=== PATIENT | male | born 1945 | race Caucasian/White ===

== ENCOUNTER 2016-12-23 00:54 | Day surgery (SDC) | payer MEDICARE ==
[2016-12-23] VITALS (10 sets, daily range): BP systolic 127–149; BP diastolic 69–98; PULSE 60–75; RESP 10–16; O2SAT 96–97
[~2016-12-23] VITALS: Ht 182.9 cm; Wt 102.6 kg
[~2016-12-23 00:54] MED LIST: ASPI-973 PO; FLUT9.9S NS; HYDR12.5 PO; IBUP400T22 PO; METO25TA99 PO; MULT-666 PO; OMEP20CA11 PO; PANT40TA3 PO; SIMV20TA4 PO; VENL75TA3 PO; VIT1TABL83 PO
[2016-12-23] MEDS ORDERED: 0.9% Sodium Chloride 1,000 ML IV ONE (07:03)
[2016-12-23] MEDS ORDERED: 0.9% Sodium Chloride 1,000 ML ONE ×2 (09:12→11:08)
[2016-12-23] MEDS ORDERED: Heparin 1,000 Unit/mL 10 mL Inj ONE ×3 (09:12→11:08)
[2016-12-23] MEDS ORDERED: Heparin 1,000 Units/500 mL NS Premix IV ONE (09:12)
[2016-12-23 09:18] LABS: BASOPHILS % (AUTO) 1.2 % (0-3); EOSINOPHILS % (AUTO) 6.1 % (0-5); MONOCYTES % (AUTO) 7.4 % (4-12); Mean Corpuscular Volume 85.6 fL (81-100); NEUTROPHILS % (AUTO) 65.8 % (40-74); Platelet Count 147 bil/L (150-400)
[2016-12-23] MEDS ORDERED: METO-272 PO (09:34)
[2016-12-23] MEDS ORDERED: VENL225T3 PO (09:34)
[2016-12-23] MEDS ORDERED: fentaNYL-PF 50 mCg/mL 2 mL Inj ONE ×2 (10:31→11:28)
[2016-12-23] MEDS ORDERED: Nitroglycerin 50,000 mcg/250 mL D5W Premix IV ONE (11:08)
[2016-12-23] MEDS ORDERED: 0.9% Sodium Chloride 250 ML IV PRN (12:49)
[2016-12-23] MEDS ORDERED: 0.9% Sodium Chloride 1,000 ML IV PRN (12:49)
[2016-12-23] MEDS ORDERED: HYDROcodone-APAP 5-325 mg Tablet PO PRN (12:50)
[2016-12-23] MEDS ORDERED: Atropine 1 mg/10 mL (Code) Syringe IVPUSH PRN (12:50)
[2016-12-23] MEDS ORDERED: Ondansetron 2 mg/mL 2 mL Inj IVPUSH PRN (12:50)
[2016-12-23] MEDS ORDERED: Heparin 25K Unit/500mL 0.45 NS 25,000 UNIT in IV Premix 1 EACH IV SCH (13:25)
[2016-12-23] MEDS ORDERED: Heparin 5,000 Unit/mL Inj IVPUSH PRN (13:25)
--- NOTE | 2016-12-23 13:43 | NUR ---
HEPARIN INFUSION BEGAN AT 1000 UNITS PER HOUR, NO BOLUS GIVEN, RIGHT AC IV REMOVED AND RESTARTED LEFT HAND BY JR GONZALEZ R.N.
--- NOTE | 2016-12-23 14:00 | NUR ---
Lab called with critical PTT value 150.8, heparin was infusing for 15 minutes, it is stopped, Dr. Ojeda called and informed. pt to have repeat PTT at 18:00. Addendum: 12/23/16 at 1413 by LOGAN MATIAS RN i informed patient that I would like to keep him on bedrest for another 2 hours as we know what his PTT value is.
--- NOTE | 2016-12-23 14:04 | CS94 ---
[address] [address] DIAGNOSTIC CARDIAC CATHETERIZATION PATIENT: SANDRO FAJARDO : 1945 MR#: [id number] ADMIT: 12/23/2016 JOB ID: [id number] SERVICE DATE: 12/23/2016 PROCEDURE NOTE -- CARDIAC CATHETERIZATION LABORATORY: DATE OF PROCEDURE: Friday, December 23, 2016. DRYWALLER: Omero Kennedy MD. PROCEDURES: 1. Percutaneous coronary intervention (diagnostic). 2. IVUS (intravascular ultrasound) -- left main coronary artery; and proximal left anterior descending. CLINICAL DETAILS: This 71-year-old man presented to the cardiac catheterization laboratory today for initial diagnostic coronary angiogram to evaluate a two month history of new-onset angina, which was associated with a myocardial perfusion scan, which is said to show inferior fixed defect, as well as a moderate inferior ischemic reperfusion. He has a history of prior ND in the early 1999s and LAD was said to be 70% narrowed but not treated at that time. Coronary angiogram today showed angiographically intermediate lesions of the distal left main coronary artery (LMCA); and of the LAD (left anterior descending) coronary artery at the trifurcation of the first septal prenatal nurse and a medium-sized (2-2.25 mm) diagonal branch. Some lesions are calcified. Some views of each of these two lesions suggest eccentric lesions that may be severely narrowed. The right coronary artery has a severe subtotal 95% mid RCA lesion with barely CORA-3 flow. PROCEDURAL DETAILS: I met the patient on the catheterization table after the diagnostic angiogram was accomplished and further evaluation was requested. We discussed the diagnostic study and decision was made to proceed with IVUS of distal left main and proximal LAD in as much as severe narrowing of these lesions would raise the question of coronary bypass. Consent had been previously signed. For the procedure, he received aspirin 324 mg chewed; and procedural anticoagulation was obtained with heparin IV bolus to achieve a therapeutic ACT. PERCUTANEOUS CORONARY INTERVENTION OF DISTAL LMCA AND OF PROXIMAL LAD USING IVUS: For the intervention, a 6-Kosovan 10 cm side-arm sheath was already in place, and a previous side-arm sheath angiogram showed adequate access in the right common femoral artery for a closure device later. For the intervention, the left main coronary artery was engaged with a 6-Kosovan JL-4 guide catheter. The left main and LAD lesions were crossed with a BMW wire -- 0.014 inches x 190 cm -- which was placed distally in the apical LAD. NT GIC 225 mcg was given. A [employer] 40 megahertz IVUS catheter was introduced into the mid LAD and a pullback run was obtained. The images were reviewed and quantitative measurements were made. There was substantial calcification. In the proximal LAD at the bifurcation of the diagonal branch there was a very focal tight lesion with minimum luminal area of 3.1 mm squared. In the distal left main there was substantial calcification and the minimum luminal area was 4.6 mm squared. Both lesions were felt to be significantly narrowed by IVUS criteria. The IVUS was withdrawn and completion angiogram showed no change in the appearance of the left coronary artery. Procedure without difficulty. Patient tolerated the procedure well. No complications. Arterial hemostasis was obtained without difficulty using a StarClose clip. The patient was transferred from the catheterization laboratory chest pain free and in stable condition back to the [facility] for ongoing care. I discussed the procedure, findings and recommendations with Dr. Ojeda and briefly with the patient. FINDINGS: 1. PCI (diagnostic) -- IVUS of distal LMCA; and proximal LAD. 2. Proximal LAD -- minimum luminal area is 3.1 square mm. 3. Distal LMCA -- minimum luminal area is 4.6 mm squared. RECOMMENDATION: 1. Per cardiology, Dr. Ojeda -- consideration of CAB (coronary artery bypass) surgery. 2. Comment: Also note from the dye from the coronary angiogram, the ostium proximal circumflex has moderate to severe narrowing that may approach 70% diameter narrowing. There is a small ramus branch with severe ostial/proximal disease. Finally, the right coronary artery, in addition to the severe mid RCA lesion, also has severe tubular ostial/proximal narrowing that approaches 70% to 80%.
--- NOTE | 2016-12-23 15:34 | NUR ---
Report called to Jackie Miramontes at [facility] in [place].Pt remains stable, no complaints of chest pain, right groin without bleeding/oozing or hematoma. Pt remains on bedrest,I will saline wll his IV's for transport as he has completed 4 hour infusion time for saline.
--- NOTE | 2016-12-23 16:11 | NUR ---
ACLS transport team here to take patient to [place].He remains stable, right groin intact. no c/o chest pain.Saline lock both IV"s.
--- NOTE | 2016-12-25 18:31 | CS94 ---
[place] [id number] DIAGNOSTIC CARDIAC CATHETERIZATION PATIENT: SANDRO FAJARDO : 1945 MR#: [id number] ADMIT: 12/23/2016 JOB ID: [id number] SERVICE DATE: 12/23/2016 INDICATION: Abnormal stress test. The patient is a 71-year-old male with a known history of exertional chest complaints, jaw pain. His primary care physician subsequently ordered a stress test which demonstrates ischemia in the inferior wall territory. PRIMARY CARE PHYSICIAN: Los Cruz MD. CONSENT: The patient was explained the risks, benefits, and alternatives of the procedure. Informed signed consent was obtained and placed in the chart. PROCEDURE: The patient was brought to the animal laboratory helper and placed on the cath table. Both groins were prepped and draped in the usual sterile manner. One percent lidocaine was infiltrated in the right groin area. Subsequently, a 6-Kinyarwanda arterial sheath was placed in the right femoral artery without any difficulty. FL4 catheter was used to engage the left main coronary artery. Multiple views of the left coronary artery were obtained in multiple projections. Subsequently, FR4 catheter was used to engage the right coronary artery. Multiple views of the right coronary artery were obtained in multiple projections. Left ventricular cineangiography was not performed. The left ventricular end-diastolic pressure was measured from 20-24 mmHg. HEMODYNAMICS: Elevated left ventricular end-diastolic pressure of 20-24 mmHg. FINDINGS: The left main coronary artery is a long, moderate-sized vessel which has a distal narrowing of approximately 40% to 50% visually. It trifurcates into left anterior descending artery, left circumflex coronary artery, and ramus intermedius coronary artery. The left anterior descending artery has a 50 to 60% stenosis right at the junction of the left circumflex coronary artery. The proximal LAD demonstrates mild luminal irregularities. At the junction of origin of the diagonal branch of the 1st major septal senior medical writer, there is a focal stenosis of 50% to 60%. The mid LAD demonstrates mild diffuse calcification but is free of any significant stenosis. The diagonal branch demonstrates an ostial narrowing of 50% to 60%. The proximal and mid segment demonstrates no significant disease. The left circumflex coronary artery demonstrates an ostial 40% to 50% stenosis prior to the origin of the obtuse marginal branch. The mid and distal left circumflex has luminal irregularities. The obtuse marginal branches are small caliber vessels. The distal left circumflex is small caliber vessel which traverses into the posterior AV groove. There is a collateral originating from the left anterior descending artery and left circumflex coronary artery, filling the PDA and posterolateral branches of the right coronary artery. Right coronary artery is severely diseased. The proximal segment demonstrates an eccentric plaque with 60% to 70% stenosis in the proximal segment. The mid RCA demonstrates diffuse tubular narrowing followed by high-grade, subtotally occluded mid RCA segment. It bifurcates into a posterior descending and posterolateral branches which are moderately diffusely diseased. The left to right collaterals are noted. IMPRESSION: 1. Moderate to severe left main coronary artery disease. 2. Moderate proximal left anterior descending disease. 3. Moderate left circumflex coronary artery disease. 4. High-grade stenosis noted in the proximal and mid right coronary artery. 5. Mature [id number] collaterals. Given findings of moderate disease in the left main coronary artery, I requested Dr. Omero Kennedy to perform an intravascular ultrasound to assess the degree of stenosis of the distal left main lesion, as well as ostial LAD lesion. Total fluoro time 7.9 minutes and total contrast used 90 cc. COMPLICATIONS: None. EDMOND
== END 2016-12-23 23:59 | disposition home or self-care (01) ==
LOC: SOUO 00:54
PROVIDERS: ATTEND Internal Medicine Cardiovascular Disease
DX: I25.119 Atherosclerotic heart disease of native coronary artery with unspecified angina pectoris (principal); I25.84 Coronary atherosclerosis due to calcified coronary lesion; I10 Essential (primary) hypertension; K21.9 Gastro-esophageal reflux disease without esophagitis; E78.5 Hyperlipidemia, unspecified; I25.2 Old myocardial infarction; Z79.82 Long term (current) use of aspirin; Z87.891 Personal history of nicotine dependence; I73.9 Peripheral vascular disease, unspecified
CPT/HCPCS: 36415; 80048; 85025; 85730; 92978; 92979; 93458; 99152; 99153; C1753; C1760; C1769; C1887; J1644; J2250; J3010; J7030; Q9967

== ENCOUNTER 2016-12-31 13:18 | Emergency (ER) | payer MEDICARE ==
[~2016-12-31] VITALS: Ht 182.9 cm; Wt 104.5 kg
[~2016-12-31 13:18] MED LIST changes: +METO-272 PO; -METO25TA99 PO; -PANT40TA3 PO; +VENL225T3 PO; -VENL75TA3 PO
[2016-12-31 13:23] VITALS: BP 96/70; PULSE 87; RESP 18; O2SAT 99
--- NOTE | 2016-12-31 13:35 | ED.REPORT ---
HPI-Rash / Abscess Date of Service Dec 31, 2016 ED Provider: Delgado Mendoza MD Pt is a 71 y.o. male with hx of recent CABG, CAD, and HTN who presents to the ED from c/o a worsening rash onset 3 days ago. The rash is primarily located on his back, chest, abdomen, bilateral thighs, and right leg. Pt reports associated itching. He denies a fever. He reports that he was admitted to the hospital on 12/23/16 for a CABG, performed by Dr. Elina Owens, and discharged on 12/28/16. Upon discharge he was started on amiodarone, Lasix, and his metoprolol was increased. Pt states that he noticed the rash shortly after being discharged and it has progressively worsened. Nursing Notes Stated Complaint: RASH Chief Complaint: Skin Rash/Abscess Nursing Notes Reviewed: Yes Allergies: Coded Allergies: No Known Allergies (Unverified , 12/31/16) Scheduled Aspirin (Aspirin) 81 Mg Tablet 81 MG PO DAILY Fluticasone Propionate (Flonase Allergy Relief) 50 Mcg/Actuation [place].susp 9.9 ML NS DAILYWD Hydrochlorothiazide (Hydrochlorothiazide) 12.5 Mg Capsule 12.5 MG PO DAILY Metoprolol Succinate ER (Metoprolol Succinate ER) 50 Mg Tab.er.24h 75 MG PO DAILY Multivitamin (Once Daily) 1 Each Tablet 1 EACH PO DAILY Omeprazole (Omeprazole) 20 Mg Capsule.dr 20 MG PO DAILY Simvastatin (Simvastatin) 20 Mg Tablet 20 MG PO HS Venlafaxine ER (Venlafaxine ER) 225 Mg Tab.er.24 225 MG PO DAILY Vit B Comp/C/FA/Iron/Vit E (Vitamin B Complex Tablet) 1 Each Tablet 1 EACH PO DAILY Scheduled PRN Ibuprofen (Ibuprofen) 400 Mg Tablet 400 MG PO DAILY PRN PRN For Pain hydrOXYzine Hcl (HydrOXYzine Hcl) 25 Mg Tablet 25 MG PO TID PRN PRN For Itching General Time Seen by MD: 13:35 Chief Complaint Rash Hx Obtained From: Patient Arrived By: Walk-in Onset Occurred: 3 days ago Context of Onset: New medication Symptom Duration: Since onset Location: : Abdomen: Back: Chest: Lower extremity Quality: Itching Severity: Current: Moderate Recent Healthcare: Recent hospitalization Past Medical History Past Medical History Notes: Cardiac surgeon: Dr. Elina Owens ([place]) Past Medical History Duodenal Ulcer Reports: Coronary artery disease, GERD, Hypertension Past Surgical History Reports: CABG Social History Other Social History: Good social support, Ambulatory Status Independent Review of Systems Constitutional: Denies: Fever Skin: Reports Itching, Reports Rash Complete sys rev & neg: except as marked. Physical Exam Initial Vital Signs Vital Signs (First) Date Time Temp Pulse Resp B/P Pulse Ox O2 Delivery O2 Flow Rate FiO2 12/31/16 13:23 36.6 87 18 96/70 99 Room Air Initial VS: Reviewed Head / Eyes: Atraumatic, Normocephalic Abdomen / GI: No distention Extremities: Vascular intact, Neuro intact Neurologic: Alert, Oriented, Nonfocal Psychiatric: Mood/affect normal, Behavior normal, Normal thought content General/Constitutional: Awake, Alert, No acute distress, Well appearing, Well developed, Well hydrated, Well nourished, Not toxic appearing Color / Condition: Positive: Rash present Rash / Lesion Notes: Right thigh worse than left Medial right thigh has ecchymosis, non-blanching. Purpuric ecchymotic area to right calf. Urticarial rash primarily to abdomen and back Rash / Lesion Location: Positive: Abdomen, Back, Chest, Leg R, Thigh L, Thigh R Rash / Lesion Pattern: Positive: Purpura, Urticarial, Negative: Blanching Abscess Notes: Respiratory / Chest: Breath sounds NL, No respiratory distress Surgical wound is healing well, no signs of infection Cardiovascular: Heart rate NL, Regular rhythm, Peripheral circulation NL Lower Extremity / Pelvis / MS: Full range of motion, Non-tender, No deformity, Neurologic intact, Vascular intact Surgical wound to right calf healing well, no signs of infection. Re-Eval/Medical Decision Source of Hx: Old records Consultation : Call Returned at: 13:54 Note: Consulted with Dr. Maksim Thomas who is cloud consultant for the pt's cardiac surgeon Dr. Elina Owens. Recommends discontinuing amioderone and starting pt on benadryl. Counseled Regarding: Diagnosis Discharge & Departure Impression: Primary Impression: Allergic urticaria Disposition: Home Discharge Condition All VS Reviewed: Yes Condition: Improved Patient Instructions: Urticaria (ED) Additional Instructions: Thank you for entrusting us with your care today. I consulted with Dr. Thomas, who is on-call for Dr. Owens, who recommended you stop the amiodarone and begin taking Hydroxyzine. Call their office on Monday for a same-day appointment. Seek care if you have difficulty breathing, facial or tongue swelling, fever, or any new or worsening symptoms. Referrals: Levi Cruz MD (PCP) Michelle Attestation Portions of this note were transcribed by Maryuri Reeves. I, Dr. Mendoza personally performed the history, physical exam and medical decision-making; I reviewed and confirmed the accuracy of the information in the transcribed note. Signed by: Michelle Sumner, 12/31/16 and 1414. copies to: Levi Cruz MD, Kirk H MD Dec 31, 2016 13:35 MARYURI REEVES Dec 31, 2016 13:43
[2016-12-31] MEDS ORDERED: HYDR-656 PO (14:03)
[2016-12-31] MEDS ORDERED: hydrOXYzine Pamoate 25 mg Capsule PO ONE (14:05)
[2016-12-31 14:21] VITALS: BP 112/70; PULSE 85; RESP 16; O2SAT 94
[2016-12-31 14:27] VITALS: PULSE 83; RESP 16
== END 2016-12-31 14:31 | disposition home or self-care (01) ==
LOC: SED 13:18
DX: L50.0 Allergic urticaria (principal); T46.2X5A Adverse effect of other antidysrhythmic drugs, initial encounter; X58.XXXA Exposure to other specified factors, initial encounter; Y93.89 Activity, other specified; Y99.8 Other external cause status; Y92.9 Unspecified place or not applicable; I10 Essential (primary) hypertension; K21.9 Gastro-esophageal reflux disease without esophagitis; I25.10 Atherosclerotic heart disease of native coronary artery without angina pectoris; E78.5 Hyperlipidemia, unspecified; Z95.1 Presence of aortocoronary bypass graft; Z98.890 Other specified postprocedural states; Z79.82 Long term (current) use of aspirin
CPT/HCPCS: 99283; Q0177

== ENCOUNTER 2017-04-09 18:50 | Inpatient (IN) | payer MEDICARE ==
[~2017-04-09] VITALS: Ht 182.9 cm; Wt 99.2 kg
[~2017-04-09 18:50] MED LIST changes: +HYDR-656 PO
[2017-04-09 19:09] VITALS: BP 108/70; PULSE 82; RESP 18; O2SAT 99
[2017-04-09 19:50] LABS: BASOPHILS % (AUTO) 0.7 % (0-3); EOSINOPHILS % (AUTO) 2.9 % (0-5); MONOCYTES % (AUTO) 10.7 % (4-12); Mean Corpuscular Hemoglobin 27.8 pg (27.0-35.0); Mean Corpuscular Volume 84.1 fL (81-100); NEUTROPHILS % (AUTO) 68.2 % (40-74); Platelet Count 193 bil/L (150-400)
--- NOTE | 2017-04-09 19:59 | DRSVH ---
PROCEDURE: X-RAY CHEST ONE VIEW, PORTABLE ([id number]) INDICATIONS: dizziness, pain with inspiration TECHNIQUE: One view of the chest was acquired. COMPARISON: None. FINDINGS: Surgical changes and devices: Sternotomy wires, likely prior CABG.. Lungs and pleura: No pleural effusions or pneumothorax. Lungs are abnormal with a linear band of pr esumed scarring at the left lung base, and blunting of the left costophrenic sulcus, chronicity uncer tain. A small subpulmonic effusion could be associated versus chronic pleural scarring. Lung volume s are large, COPD may be present. Possible early pneumonia lateral upper right lung. Mediastinum: Mediastinal contours appear normal. Heart size is normal. Bones and chest wall: No suspicious bony lesions. Overlying soft tissues appear unremarkable. IMPRESSION: In the absence of comparison plain films definitive diagnosis of the cause of blunting o f the left costophrenic sulcus and overlying linear banding of what appears to be scarring is indeter minate. Prior CABG. Possible COPD. If old comparison films are available they would be very helpfu l for additional evaluation of the findings noted above. Dictated by: Stiven Chun M.D. on 04/09/2017 at 19:55 Approved by: Stiven Chun M.D. on 04/09/2017 at 19:57
--- NOTE | 2017-04-09 20:16 | ED.REPORT ---
HPI-General Illness Date of Service Apr 09, 2017 ED Provider: Ac Rodgers MD The pt is a 71 y/o male w/ a hx of HTN and a CABG presenting to the ED complaining of nausea that started yesterday. Today, he states that he also became lightheaded, experienced a rapid "irregular" heartbeat, and then noticed some neck and jaw pain after that. He describes these symptoms and pain as similar to the pain he has had in the past when he had a heart attack. His took his blood pressure and noticed that it was in the 80s at that time. These symptoms improved while he was on his way to the emergency department today. Did not seem to be associated with exertion. His lightheadedness dissipated when he arrived at the the ED and began when he began to stand up from a chair. Of note, he also states that he has some shortness of breath when he takes a deep breath. Denies peripheral edema. No other complaints at this time. Nursing Notes Stated Complaint: LIGHT HEADED, PAIN WITH BREATHING Chief Complaint: General Complaint Nursing Notes Reviewed: Yes Allergies: Coded Allergies: amiodarone (Verified Allergy, Mild, Rash, 04/09/17) Scheduled Aspirin (Aspirin) 81 Mg Tablet 81 MG PO DAILY Fluticasone Propionate (Flonase Allergy Relief) 50 Mcg/Actuation [place].susp 9.9 ML NS DAILYWD Hydrochlorothiazide (Hydrochlorothiazide) 12.5 Mg Capsule 12.5 MG PO DAILY Metoprolol Succinate ER (Metoprolol Succinate ER) 50 Mg Tab.er.24h 75 MG PO DAILY Multivitamin (Once Daily) 1 Each Tablet 1 EACH PO DAILY Omeprazole (Omeprazole) 20 Mg Capsule.dr 20 MG PO DAILY Simvastatin (Simvastatin) 20 Mg Tablet 20 MG PO HS Venlafaxine ER (Venlafaxine ER) 225 Mg Tab.er.24 225 MG PO DAILY Vit B Comp/C/FA/Iron/Vit E (Vitamin B Complex Tablet) 1 Each Tablet 1 EACH PO DAILY Scheduled PRN Ibuprofen (Ibuprofen) 400 Mg Tablet 400 MG PO DAILY PRN PRN For Pain hydrOXYzine Hcl (HydrOXYzine Hcl) 25 Mg Tablet 25 MG PO TID PRN PRN For Itching General Time Seen by : 20:12 Chief Complaint Other (Lightheadedness) Hx Obtained From: Patient Arrived By: Walk-in Sudden in Onset?: Yes Onset Occurred: Yesterday Symptom Duration: Constant Location: : Neck Radiation: : Jaw Severity: Current: Mild Pertinent Negative: Pt denies other symptoms Pertinent Negative: Relieved by nothing Context Related History: Reports Coronary artery disease Recent Healthcare: No recent hospitalization, Recent doctor visit Similar Sx Previous: Yes Past Medical History Past Medical History Notes: Cardiac surgeon: Dr. Elina Owens ([place]) Past Medical History Duodenal Ulcer Reports: Coronary artery disease, GERD, Hypertension Past Surgical History Reports: CABG Smoking History Former Smoker Social History Other Social History: Good social support, Ambulatory Status Independent Review of Systems Neck and jaw pain Substernal pain w/ inspiration Full Review of Systems Cardiovascular: Reports: Palpitations, Denies: Edema GI: Reports: Nausea Neurologic: Reports: Lightheaded Complete sys rev & neg: except as marked. Physical Exam Nursing note and vitals reviewed. Constitutional: Well-developed, well-nourished. Not diaphoretic. Head: Normocephalic and atraumatic. Mouth/Throat: Oropharynx is clear and moist. No oropharyngeal exudate. Eyes: EOM are normal. Pupils are equal, round, and reactive to light. Neck: Supple, no tracheal deviation. Cardiovascular: Normal rate, regular rhythm. Equal and intact distal pulses throughout. Pulmonary/Chest: Effort normal and breath sounds normal. No respiratory distress. Abdominal: Soft. No distension. There is no tenderness, rebound, or guarding. Bowel sounds present. Musculoskeletal: Range of motion grossly intact, moving all extremities. No edema or tenderness appreciated. Neurological: AOx3. Grossly nonfocal exam. Strength and sensation intact and equal to bilateral upper and lower extremities. Skin: Warm and dry, no rashes or pallor appreciated. Psychiatric: Appropriate mood and affect. Behavior appears normal. Vital Signs Vital Signs Date Time Temp Pulse Resp B/P Pulse Ox O2 Delivery O2 Flow Rate FiO2 04/09/17 22:42 73 18 105/54 98 Room Air 04/09/17 19:09 37.2 82 18 108/70 99 Room Air Interpretation & Diagnostics Lab Results Interpretation Result Diagram: 04/09/17193104/09/171931 Test 04/09/17 19:32 04/09/17 22:30 White Blood Count 7.2th/mm3 (3.8-10.1) Red Blood Count 4.92mil/mm3 (4.40-5.80) Hemoglobin 13.7g/dL (13.8-17.2) Hematocrit 41.4% (41.0-50.0) Mean Corpuscular Volume 84.1fL (81-100) Mean Corpuscular Hemoglobin 27.8pg (27.0-35.0) Mean Corpuscular Hemoglobin Concent 33.1% (32.0-37.0) Red Cell Distribution Width 13.8% (12.3-15.4) Platelet Count 193bil/L (150-400) Neutrophils (%) (Auto) 68.2% (40-74) Lymphocytes (%) (Auto) 17.4% (14-46) Monocytes (%) (Auto) 10.7% (4-12) Eosinophils (%) (Auto) 2.9% (0-5) Basophils (%) (Auto) 0.7% (0-3) Sodium Level 138mEq/L (134-144) Potassium Level 4.2mEq/L (3.5-5.2) Chloride Level 101mEq/L (97-108) Carbon Dioxide Level 25mmol/L (18-29) Blood Urea Nitrogen 15mg/dL (8-27) Creatinine 0.94mg/dL (0.76-1.27) Estimat Glomerular Filtration Rate 84mL/min (>59) Glucose Level 91mg/dL (60-99) Calcium Level 9.1mg/dL (8.5-10.1) Magnesium Level 2.1mg/dL (1.6-2.6) Total Bilirubin 0.3mg/dL (0.0-1.2) Aspartate Amino Transf (AST/SGOT) 24U/L (0-50) Alanine Aminotransferase (ALT/SGPT) 23U/L (0-44) Alkaline Phosphatase 80U/L (25-160) Troponin T < 0.010ug/L (0.0-0.011) Total Protein 7.0g/dL (6.4-8.4) Albumin 3.9g/dL (3.4-5.0) Hold Pal Top Tube Received (Received) D-Dimer 1.02mg/L FEU (<0.50) ECG Interpretation ECG Interpretation: Rate 75 Normal sinus rhythm Low voltage, extremity leads Time: 19:23 Interpreted by: ED physician X-Ray Chest Interpretation Chest Xray Interpretation: IMPRESSION: In the absence of comparison plain films definitive diagnosis of the cause of blunting of the left costophrenic sulcus and overlying linear banding of what appears to be scarring is indeterminate. Prior CABG. Possible COPD. If old comparison films are available they would be very helpful for additional evaluation of the findings noted above. Dictated by: Stiven Chun M.D. on 04/09/2017 at 19:55 Approved by: Stiven Chun M.D. on 04/09/2017 at 19:57 View: Portable, 1 view Interpretation / Wet Read by: Interpret - Radiologist Re-Eval/Medical Decision Med Decision/Clinical Course Well-appearing 71-year-old male with a history notable for recent CABG presenting to the ED for evaluation of lightheadedness, palpitations, hypotension, and neck and jaw pain similar to previous anginal symptoms. Hemodynamically stable here in the ED. EKG with no acute ischemic changes, initial troponin negative. He does have some pleuritic symptoms; d-dimer positive, CT angiogram of the chest negative for PE. With his hypotension, near syncope, recent CABG, and experiencing his anginal equivalent, some concern for unstable angina. Plan admission overnight for telemetry, likely cardiology consult. Patient agreeable to the plan as stated, no further questions. Time of Eval: 23:05 Re-Evaluation/Progress Note: Rechecked pt and discussed need for CT scan. Consultation : Referral / Consult Name: GloriaOmayra fonseca DO Consulted With: Hospitalist Call Returned at: 22:27 Manager Ems: Will see patient, Agrees with eval, Agrees with plan, Accepts admit Discharge & Departure Primary Impression: Dysrhythmia Arrhythmia type: unspecified cardiac arrhythmia Qualified Code: I49.9 - Cardiac arrhythmia, unspecified Additional Impression: Unstable angina Disposition: ADMITTED TO HOSPITAL Discharge Condition All VS Reviewed: Yes Condition: Stable Referrals: Levi Cruz MD (PCP) Michelle Attestation Portions of this note were transcribed by Sheldon Burns. I, Dr. Rodgers personally performed the history, physical exam and medical decision- making; I reviewed and confirmed the accuracy of the information in the transcribed note. Signed by: Michelle Aly, 04/09/17 and 7323. copies to: Levi Cruz MD,Ac Ronquillo MD Apr 09, 2017 20:16 Sheldon Burns Apr 09, 2017 21:31
[2017-04-09 20:28] LABS: Magnesium 2.1 mg/dL (1.6-2.6)
[2017-04-09 20:30] LABS: TROPONIN T < 0.010 ug/L (0.0-0.011)
[2017-04-09 22:42] VITALS: BP 105/54; PULSE 73; RESP 18; O2SAT 98
[2017-04-10] VITALS (12 sets, daily range): BP systolic 116–142; BP diastolic 65–91; PULSE 70–94; RESP 16–24; O2SAT 96–99
[2017-04-10] MEDS ORDERED: Ondansetron 2 mg/mL 2 mL Inj IVPUSH PRN (01:10)
[2017-04-10] MEDS ORDERED: Alum-Mag Hydrox-Simeth 30 mL Suspension PO PRN ×2 (01:10)
[2017-04-10] MEDS ORDERED: Polyethylene Glycol (PEG) 17 Gm Powder PO PRN (01:10)
--- NOTE | 2017-04-10 01:20 | PCM.HPMED ---
Subjective Date of Service Apr 10, 2017 Primary Provider: Admitting Physician: Omayra Goyal DO Primary Care Physician: Levi Cruz MD Attending Physician: Omayra Goyal DO Admit Status: From the Emergency Department Chief Complaint: Nausea, lightheadedness, neck/jaw pain History of Present Illness: Patient is a 71 y/o male w/ a hx of HTN and CAD s/p CABG who presents with nausea, lightheadedness, and neck/jaw pain. His symptoms began yesterday with nausea, not associated with activity, which resolved eventually. Today, he states that he also became lightheaded, and then noticed some neck and jaw pain after that. He describes these symptoms and pain as similar to the pain he has had in the past when he had a heart attack. 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 His symptoms improved while he was on his way to the emergency department. His lightheadedness dissipated when he arrived at the the ED. He reports that his symptoms are not associated with exertion. He denies new chest pain, shortness of breath, palpitations, edema, fevers, chills, coughing, wheezing, syncope, vomiting, diarrhea, vision changes, or numbness/weakness. No other complaints at this time. He had a CABG on December 24, 2016, and reports mild dyspnea on exertion and mild chest pain on deep inspiration ever since then. There has been no change in these symptoms in the last few days. He has been doing cardiac rehab regularly and reports he he used the elliptical and rowing machine 3 days ago without any dyspnea or chest pain. He walks his dog 1 mild daily and denies any new symptoms with activity today or yesterday. In the ED, HR 82, RR 18, BP was 108/70, O2 99 on room air. CBC was normal. CMP was normal. Troponin was negative. D Dimer was elevated at 1.02. CXR showed linear band of presumed scarring at the left lung base, and blunting of the left costophrenic sulcus, chronicity uncertain. A small subpulmonic effusion could be associated versus chronic pleural scarring. Lung volumes are large, COPD may be present. Possible early pneumonia lateral upper right lung. Review of Systems: Comprehensive review of systems conducted and was negative except for the pertinent positives listed above. Allergies Coded Allergies: amiodarone (Verified Allergy, Mild, Rash, 04/09/17) Home Medications Aspirin 81 mg daily Fluticasone nasal spray HCTZ 12.5 mg daily Hydroxyzine 25 mg TID PRN Ibuprofen 400 mg daily PRN Metoprolol succinate 75 mg daily Omeprazole 20 mg daily Simvastatin 20 mg qhs Venlafaxine ER 225 mg daily PMH Coronary artery disease s/p CABG Hypertension GERD w/hx of duodenal ulcer Surgical History CABG Family History Mother: TIA, CHF Grandmother: NC - at 92 Aunt: Stroke Social History Hx Alcohol Use: Yes Hx Substance Use: No Smoking Status: Former Smoker Exam Vital Signs Vital Sign - Last Date Time Temp Pulse Resp B/P Pulse Ox O2 Delivery O2 Flow Rate FiO2 04/09/17 22:42 73 18 105/54 98 Room Air 04/09/17 19:09 37.2 Exam General: Alert, Oriented X3, Cooperative, No acute distress Head: Normocephalic, atraumatic. External ears normal. Eyes: PERRLA, EOMI. Anicteric sclerae. Mouth: Mouth normal, Mucous membranes moist/pink Neck: Neck supple with full range of motion. Chest& Lungs: Clear to auscultation bilaterally with no crackles, wheezes, or rhonchi. Cardiovascular: Regular rate/rhythm, Normal S1, Normal S2, No murmurs/rubs/ gallops Abdomen: Non-tender, Non-distended, No masses, Normoactive bowel tones, Soft Musculoskeletal: Normal range of motion Extremities: No cyanosis/clubbing/edema bilaterally Neurological: Grossly neurologically intact. Normal speech Lab and Diagnostics Result Diagram: 04/09/17193104/09/171931 Assessment & Plan Patient is a 71 y/o male w/ a hx of HTN and CAD s/p CABG who presents with nausea, lightheadedness, and neck/jaw pain. Neck and jaw pain, acute. Present on admission. - Pt presents with nausea, lightheadedness, reported irregular fast heart rate, and neck/jaw pain in the context of a history of CAD s/p CABG. Pain is not associated with exertion and pt denies chest pain, but has hx of atypical cardiac pain. However, appears to be non-cardiac chest pain by description, especially as he has been exercising daily with walks and rowing machine/ elliptical without symptoms. Pt had elevated D-dimer in ED. EKG showed normal sinus rhythm. His presentation is suspicious for pulmonary embolism, so will proceed with CT angio chest. However, given his significant cardiac history, will also treat as unstable angina. - Continue home aspirin. - Plavix 300 mg now followed by 75 mg daily - Changed simvastatin to atorvastatin 80 mg - Nitroglycerin SL PRN - Continue metoprolol succinate - CT angio chest pending - Trend troponin x3 - Monitor on telemetry - Possible Cardiology consult in AM - hgbA1c and lipid panel pending Irregular heart rate, acute. Not present on admission. - Pt reports his felt an irregular rapid heart rate when checking his vitals. Pt denies palpitations. EKG and telemetry have shown normal sinus rhythm. -Monitor on telemetry Hypertension, chronic. - Well controlled on home meds - Continue home HCTZ, metoprolol GERD w/hx of duodenal ulcer - Protonix 20 mg daily Depression, chronic. - Continue home venlafaxine - Bowel regimen as needed - Antiemetic as needed Patient is admitted under observation status with expected length of stay less than 2 midnights due to severity of presenting symptoms, risk of adverse event, and complexity of treatment plan. VTE Prophylaxis: Sub-Q Heparin (Unfractionated) Resuscitation Status: CPR: Attempt Resuscitation Attending Statement The patient was seen and examined together with house staff on 04/10/2017 and I agree with the history, exam and plan as outlined in the note above. Uriel Barr Apr 10, 2017 01:20 Omayra Goyal DO Apr 10, 2017 05:57
[2017-04-10 01:27] LABS: APPEARANCE,URINE CLEAR (CLEAR,HAZY); COLOR,URINE YELLOW (YELLOW); OCCULT BLOOD,URINE MODERATE (NEGATIVE); UROBILINOGEN,URINE NORMAL (NORMAL)
[2017-04-10 06:15] LABS: BASOPHILS % (AUTO) 0.9 % (0-3); EOSINOPHILS % (AUTO) 5.3 % (0-5); MONOCYTES % (AUTO) 10.6 % (4-12); Mean Corpuscular Hemoglobin 27.8 pg (27.0-35.0); Mean Corpuscular Volume 84.1 fL (81-100); NEUTROPHILS % (AUTO) 55.5 % (40-74); Platelet Count 168 bil/L (150-400)
--- NOTE | 2017-04-10 06:23 | NUR ---
New Onset A-Fib Telemetry called of new onset A-fib starts around 0530. Pt is asymptomatic states that he's feeling "okay". notified, Emergency 12 lead EKG ordered. Will continue to monitor. Addendum: 04/10/17 at 0634 by EDUARDO PLASCENCIA RN Pt denies chest pain, sob, n/v or abd discomfort. Echo ordered by . Explained the plan to pt. Pt verbalized understanding.
[2017-04-10] MEDS ORDERED: MeTOProlol XL 50 mg ER24 Tablet PO SCH (08:30)
--- NOTE | 2017-04-10 09:33 | DRSVH ---
PROCEDURE: CT ANGIO CHEST PULMONARY EMBOLISM ([id number]) INDICATIONS: pleuritic chest pain; eval PE, other abnl TECHNIQUE: After the administration of intravenous contrast, 2 mm thick sections acquired from the pulmonary api gianfranco to the posterior costophrenic angles. 3-dimensional maximum intensity projection (MIP) coronal a nd sagittal reformats were then acquired through the thorax. For radiation dose reduction, the follo wing was used: automated exposure control, adjustment of mA and/or kV according to patient size. COMPARISON: None. FINDINGS: Image quality: Excellent. Pulmonary arteries: Pulmonary arteries are normal in size, and demonstrate no intraluminal filling d efects to suggest central pulmonary embolism. Lungs and pleura: Lungs are clear. Small left pleural effusion. No pneumothorax. Central and periph eral airways are patent. Mediastinum: Heart size is normal, without pericardial effusion. No mediastinal or hilar adenopathy . Thoracic aorta is normal in caliber and enhancement. Esophagus is normal in caliber, without hiat al hernia. Bones and chest wall: No suspicious bony lesions. Ribs and thoracic spine appear intact throughout. Thyroid gland is normal. No axillary or supraclavicular adenopathy. Abdomen: Visualized upper abdominal solid organs appear normal in the early arterial phase of enhanc ement. IMPRESSION: 1. No acute pulmonary emboli. 2. Small left pleural effusion. 3. There are no discrepancies with the preliminary report. Dictated by: Mau Hdz M.D. on 04/10/2017 at 9:21 Approved by: Mau Hdz M.D. on 04/10/2017 at 9:25
--- NOTE | 2017-04-10 09:56 | NUR ---
[facility] signed
--- NOTE | 2017-04-10 10:00 | NUR ---
Converted back to SR 68 at 1000. informed.
[2017-04-10] MEDS: Pantoprazole 20 mg ER24 Tablet PO SCH (10:23)
[2017-04-10] MEDS: Venlafaxine XR 75 mg ER24 Capsule PO SCH (10:24)
[2017-04-10] MEDS: Heparin 5,000 Unit/mL Inj SUBQ SCH ×2 (10:24→16:30)
--- NOTE | 2017-04-10 13:29 | DRSVH ---
[facility] [address] [place] [address] Echocardiogram Report Name: SANDRO FAJARDO Study Date: 04/10/2017 Height: 72 in Hospital Exam Location: [facility] Weight: 219 lb Gender: Male BSA: 2.2 m2 : 1945 Age: 71 yrs BP: 127/80 mmHg Reason For Study: Atrial fibrillation History: HTN,CABG Ordering Physician: Performed By: Aleksandra Peters Interpretation Summary 1. Normal LV size and function. Wall motion abormalities suggest presence of coronary artery diseases. The overall systolic function is normal. The estimated ejection fraction is 55-60%. 2. Normal biatrial size with mild lipomatous hypertrophy of the inter arial septum. 3. Age appropriate sclero-degenerative valve changes are noted. No doppler evidence of hemodynamically significant valve diseases. 4. Normal diastolic function. 5. No prior study is available for comparison. Procedure: A two-dimensional transthoracic echocardiogram with color flow and Doppler was performed. The study quality was technically difficult. There is no prior echocardiogram noted for this patient. A contrast injection of Definity was performed to improve assessment of LV function. The patient was in normal sinus rhythm during the exam. Left Ventricle: The left ventricle is normal in size. There is normal left ventricular wall thickness. The ejection fraction is estimated to be 55-60%. Septal motion is consistent with post-operative state. There is basal inferior wall mild hypokinesis. Assessment of diastolic parameters indicates normal left ventricular diastolic function and normal filling pressures. Right Ventricle: The right ventricle grossly appears normal in size with probable normal systolic function. Atria: The left atrial size is normal. Right atrium not well visualized. There is no Doppler evidence for an interatrial shunt. Mitral Valve: The mitral valve is normal in structure and function. There is trace mitral regurgitation. Aortic Valve: The aortic valve opens well. The aortic valve is trileaflet. No aortic regurgitation is present. Tricuspid Valve: The tricuspid valve is not well visualized, but is grossly normal. There is trace tricuspid regurgitation. The right ventricular systolic pressure is estimated at 27 mmHg assuming a right atrial pressure of 3 mm Hg. Pulmonic Valve: The pulmonic valve is not well seen, but is grossly normal. Great Vessels: The aortic root is normal size. The ascending aorta could not be visualized. The aortic arch is mildly enlarged. The IVC is of normal diameter and collapses greater than 50% with a sniff. This suggests a low right atrial pressure of 3 mm Hg. Pericardium/ Pleura There is no pericardial effusion. MMode/2D Measurements & Calculations LVIDd: 4.9 cm LA dimension LVOT diam: 2.1 cm LV gallardo. diameter/BSA LVIDs: 3.5 cm AoV Opening (cm/m^2): 2.2 FS: 29.4 % LA A2 area EPSS: 0.29 cm Ao root diam IVSd: 1.0 cm LVPWd: 0.93 cm LA A4 area Aortic Jxn: 2.9 cm Ao Arch Diam (Prox LA length Trans): 3.4 cm (vol): 5.2 cm LA vol: 71.7 ml LA vol index IVC diam : 2.0 cm LV sys. diameter/BSA (cm/m^2): 1.6 Doppler Measurements & Calculations Ao V2 max MV E max arturo MV E/A: 1.3 TR max arturo : 123.8 cm/sec : 76.2 cm/sec Med Peak E' Arturo : 244.0 cm/sec Ao max PG MV A max arturo TR max PG : 6.1 mmHg : 58.2 cm/sec E/E' med: 10.7 : 23.8 mmHg Ao mean PG MV P1/2t: 59.7 msec Lat Peak E' Arturo PA V2 max : 83.1 cm/sec LVOT Max Arturo E/E' lat: 5.9 PA mean PG : 84.7 cm/sec E/e' average: 8.3 MV A dur: 0.11 sec PA Accel Time SEAN(I,D): 2.0 cm : 0.12 sec sev ratio MV dec time MV P1/2t max arturo Ao V2 mean LV V1 max PG : 0.20 sec : 84.7 cm/sec MVA(P1/2t): 3.7 cm2 Ao V2 VTI: 23.9 cm LV V1 VTI SEAN(V,D): 2.3 cm2 : 14.4 cm PA V2 mean SEAN indexed to BSA : 54.6 cm/sec (cm^2/m^2): 0.92 Electronically signed by: Dr. Sid Ojeda on Reading Physician:04/10/2017 01:28 PM
--- NOTE | 2017-04-10 14:38 | NUR ---
Social Work-initial assessment/readiness for discharge: Data:See initial assessment. Pt is a 71 y/o male who was admitted on 04/09/17 for unstable angina per H&P. Pt's insurance is [facility] and PCP is Los Cruz MD. EMR reviewed. Pt's readmission score is 2. SW met with pt and at bedside, SW role explained. Pt is alert and oriented x3. Pt resides at home with his in [place] where he remains independent with ADLS. Pt drives and does not use any DME. Pt has had [facility] and has no SNF history. 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 SW discussed DPOA/ advanced directive, pt has not completed this, SW provided him with paperwork. Pt's confirms she will provide transport home at discharge. SW provided phone number and plan on white board in room. No discharge needs identified. SW will continue to follow if needs arise. Assessment:Pt who is independent at baseline. Plan:Pt to discharge home when medically stable via POV. No discharge needs identified. SW will continue to follow if needs arise. MILADY Cid Addendum: 04/10/17 at 1446 by CARLENE HARRY Amended: Links added.
--- NOTE | 2017-04-10 18:44 | NUR ---
Pain Pt reports pain -midline in chest of 4/10 only on deep inspiration. Instructed to let nurse know if pain returns. Pt relaxed and taking it easy during the day. Had no pain events during shift. Reported having a difficult time sleeping last night, requested Ambien to help. informed.
--- NOTE | 2017-04-10 18:56 | PCM.PNMED ---
Subjective Date of Service Apr 10, 2017 Subjective Patient seen and examined today. Denies chest pain now. Vitals stable. Exam Vital Signs Vital Sign - Last Date Time Temp Pulse Resp B/P Pulse Ox O2 Delivery O2 Flow Rate FiO2 04/10/17 17:29 36.7 70 18 127/69 98 Room Air Intake and Output 04/09/17 04/09/17 04/10/17 Cumulative From/Thru 15:00 23:00 07:00 04/09/17 19:09 - 04/10/17 06:03 Intake Total 300 ml 300 ml Output Total 0 ml 0 ml Balance 300 ml 300 ml Intake Oral 300 ml 300 ml Output Urine Total 0 ml 0 ml Exam Initial VS: Reviewed, Vital signs abnormal Head / Eyes: Atraumatic, Normocephalic, PERRL ENT: Mucous membranes moist, Conjunctiva normal, No scleral icterus Neck: Supple, Non-tender, Full range of motion Respiratory: Breath sounds normal, Clear to auscultation, No respiratory distress Cardiovascular: Irregularly irregular Abdomen / GI: Soft, Non-tender, No guarding, No rebound, No distention Extremities: Vascular intact, Neuro intact, No swelling, No tenderness Skin: Scars on chest from CABG Neurologic: Alert, Oriented, Nonfocal Psychiatric: Mood/affect normal, Behavior normal, Normal thought content General/Constitutional: Awake, Alert, Cooperative Lab and Diagnostics Result Diagram: 04/10/17 0550 04/10/17 0550 Cardiac Echo Impressions Interpretation Summary 1. Normal LV size and function. Wall motion abormalities suggest presence of coronary artery diseases. The overall systolic function is normal. The estimated ejection fraction is 55-60%. 2. Normal biatrial size with mild lipomatous hypertrophy of the inter arial septum. 3. Age appropriate sclero-degenerative valve changes are noted. No doppler evidence of hemodynamically significant valve diseases. 4. Normal diastolic function. 5. No prior study is available for comparison. Additional Diagnostics CT angio IMPRESSION: 1. No acute pulmonary emboli. 2. Small left pleural effusion. Assessment & Plan Patient is a 71 y/o male w/ a hx of HTN and CAD s/p CABG who presents with nausea, lightheadedness, and neck/jaw pain. Neck and jaw pain, acute. Present on admission. - h/o CABG. ACS (unstable angina) a possibility - Continue home aspirin. - Plavix 300 mg given one time, will discontinue - Changed simvastatin to atorvastatin 80 mg - Nitroglycerin SL PRN - Continue metoprolol succinate - CT angio -ve for PE - Trend troponin x3 - Monitor on telemetry - Cardiology on board, stress test tomorrow - hgbA1c and lipid panel pending Irregular heart rate, acute. Not present on admission. - Pt reports his felt an irregular rapid heart rate when checking his vitals. Pt denies palpitations. EKG and telemetry have shown normal sinus rhythm. -Patient in and out of afib on tele Hypertension, chronic. - Well controlled on home meds - Continue home HCTZ, metoprolol (hold for stress test) GERD w/hx of duodenal ulcer - Protonix 20 mg daily Depression, chronic. - Continue home venlafaxine Insomnia - Ambien PRN - Bowel regimen as needed - Antiemetic as needed Patient is admitted under observation status with expected length of stay less than 2 midnights due to severity of presenting symptoms, risk of adverse event, and complexity of treatment plan. VTE Prophylaxis: Sub-Q Heparin (Unfractionated) Resuscitation Status: CPR: Attempt Resuscitation Time spent 45 mins Curtis Denney MD Apr 10, 2017 18:56
--- NOTE | 2017-04-10 23:17 | CONS ---
[address] [address] CONSULTATION REPORT PATIENT: SANDRO FAJARDO : 1945 MR#: [id number] ADMIT: 04/09/2017 JOB ID: [id number] DATE OF SERVICE: 04/10/2017 ADMITTING PROVIDER: Omayra Goyal DO. PRIMARY CARE PHYSICIAN: Los Cruz MD. CONSULTING PHYSICIAN: Curtis Denney MD. REASON FOR CONSULTATION: Paroxysmal atrial fibrillation. HISTORY OF PRESENT ILLNESS: The patient care is a 71-year-old delightful male with a known history of coronary artery disease, left main, status post coronary artery bypass x4, December 28, 2016. Postoperative atrial fibrillation, hyperlipidemia, anemia, gastroesophageal reflux disease, presented to the hospital with symptoms of sudden onset dizziness and presyncope. Patient underwent surgery in December 2016 and since then has done reasonably well. According to the patient, he has been fairly active, he is taking his medications regularly, and reported no significant change in his exercise tolerance; as a matter of fact, he has been doing his cardiac rehab and has been feeling good. Until yesterday, he had been doing well, until yesterday when he had sudden onset symptoms of dizziness, fatigue and tiredness. Patient almost fell, presyncopal. 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 He noted that his heart rate was extremely high and his blood pressure was low at 88 over diastolic unknown when he decided to come to the emergency department. The patient chose to come to [facility] given his primary care provider, Dr. Cruz, as well as I provide coverage at [facility]. On arrival, he was noted to be in atrial fibrillation with rapid ventricular rate. The patient also reported symptoms of pain in the jaw and in the neck. He thought he felt his pulse to be irregular. At that time, he came to the [facility] Emergency Department. Patient with new onset symptoms of symptomatic atrial fibrillation was admitted to the hospital. The patient underwent admission and was given aspirin and Plavix in the emergency department. His troponin levels were indeterminate, not elevated. This morning, I received a phone call from Dr. Denney, who requested consultation on this patient. On arrival, he also reported symptoms of mild chest pain with deep inspiration. Therefore, he underwent CT angio and the pulmonary embolism was ruled out. The patient spontaneously converted to sinus rhythm, although had two recorded runs of atrial fibrillation with rapid ventricular rate while being on the telemetry. Patient reported history of atrial fibrillation with rapid ventricular rate for which he was prescribed amiodarone at the time of his discharge after his open-heart surgery. However, the patient developed allergic reaction to amiodarone. REVIEW OF SYSTEMS: All 14 systems were reviewed and were mostly negative, except for above-stated symptoms just prior to the admission to this hospitalization. ALLERGIES: He is allergic to AMIODARONE, which he developed rash. HOME MEDICATIONS: Include: 1. Aspirin 81 mg daily. 2. Fluticasone nasal spray. 3. Metoprolol succinate 50 mg daily. 4. Atorvastatin 40 mg daily. 5. Venlafaxine 225 mg daily. 6. Zantac 150 mg daily. PAST MEDICAL HISTORY: Significant for: 1. Coronary artery disease status post bypass surgery December 24, 2016. 2. Hypertension. 3. Gastroesophageal reflux disease. 4. Obstructive sleep apnea status post UPP. SURGICAL HISTORY: Significant for: 1. Coronary artery bypass surgery, four-vessel bypass for left main disease and severe right coronary artery disease. 2. History of obstructive sleep apnea status post UPP. SOCIAL HISTORY: He drinks beer a day. No history of substance abuse. He is a former smoker. OBJECTIVE: Vital signs: Blood pressure of 110/60, pulse of 69 irregular. On telemetry, I was able to identify runs of paroxysmal atrial fibrillation with rapid ventricular rate at the rate of 150 to 170 beats per minute, irregularly irregular. Patient was alert, oriented, not in any distress. Neck is soft, supple. There is no lymphadenopathy, no elevated JVD. Carotid upstroke is normal and brisk. No carotid bruit. S1, S2 is normal, regular. There is a soft systolic murmur heard best at the left sternal border. Chest is clear to auscultation. Abdomen is soft, benign, and nontender. There is no hepatosplenomegaly. Lower extremities: There is no pedal edema. No cyanosis, clubbing. Neurological: The patient is grossly intact. LABORATORIES: His labs as noted by the primary care service: White count is not elevated. Serum chemistries within normal limits. BUN and creatinine of 15 and 0.94, and glucose of 91. ASSESSMENT: 1. Symptomatic paroxysmal atrial fibrillation. This gentleman is a 71-year-old male with known history of hypertension, admitted to the hospital with symptomatic paroxysmal atrial fibrillation despite being on 50 mg of metoprolol succinate. The ventricular rate was significantly higher, which explains his symptoms associated with atrial fibrillation and hypotension. His [id number] score is 2; therefore, he is a candidate for anticoagulation, which we will discuss later in the recommendation part. Patient has a known history of sleep apnea and has not had any recent sleep study. Many years ago he had symptoms of snoring and sleep apnea for which he underwent UPP. Therefore, I advised him that as an outpatient he should undergo sleep study to reassess the need for a CPAP mask. Patient also drinks about one beer a day for last many years. He used to drink two beers per day. I advised him to reduce the consumption of beer at this time. At this time, I would recommend that he should hold his metoprolol for his exercise treadmill stress testing for tomorrow, though will resume after his exercise treadmill stress test. 2. Anginal equivalent. Patient had an episode of jaw pain and neck pain associated with atrial fibrillation and rapid ventricular rate. It may explain demand ischemia Type II TX. Given known history of coronary artery disease status post bypass surgery, an underlying ischemic myocardium cannot be excluded. Therefore, reasonable option would be to perform an exercise treadmill stress test with myocardial perfusion imaging for risk stratification of his anginal symptoms. 3. Hypertension. His blood pressure is adequately controlled at this time; therefore, no further intervention is required. 4. Hyperlipidemia. He is on atorvastatin 40 mg daily. No recent lipid panel has been done. RECOMMENDATIONS: 1. Continue with aspirin. 2. Hold metoprolol succinate for now prior to the stress testing. 3. Stop Plavix. 4. Exercise treadmill stress testing with myocardial perfusion imaging. 5. Consideration for anticoagulation given his [id number] score of 2. Will address that issue of his exercise treadmill stress testing. The patient is open to that conversation. 6. Consideration for a sleep study as an outpatient. 7. If we have difficulty maintaining a sinus rhythm and suppressing his atrial fibrillation, we may have to increase the dose of beta-coty or consideration for permanent pacemaker implantation given tachybrady episodes of atrial fibrillation. Patient demonstrated significant high ventricular rate with his paroxysmal atrial fibrillation. 8. I will follow with you tomorrow and make appropriate recommendations. Please schedule this patient for exercise treadmill stress testing and have the treadmill lab call me for his stress test. I appreciate the opportunity to participate in the care of this delightful gentleman. Please feel free to give me a call should you have any questions. My telephone number is [phone]. MTDD
[2017-04-11] MEDS: Heparin 5,000 Unit/mL Inj SUBQ SCH ×2 (00:30→07:55)
[2017-04-11 01:01] VITALS: BP 154/105; PULSE 77; RESP 18; O2SAT 98
[2017-04-11 04:48] VITALS: BP 154/92; PULSE 81; RESP 18; O2SAT 98
--- NOTE | 2017-04-11 06:17 | NUR ---
NOC/NPO Pt denies episodes of chest pain, sob, n/v or abd discomfort. Telemetry monitoring noted Sinus Rhythm 67. Has been NPO since midnight for upcoming cardiac stress test. Explained to the pt about the upcoming procedure to be done. Pt verbalizes understanding. Pt's VSS and has been afebrile throughout the night.
[2017-04-11] MEDS: Venlafaxine XR 75 mg ER24 Capsule PO SCH (07:55)
[2017-04-11] MEDS: Pantoprazole 20 mg ER24 Tablet PO SCH (07:55)
[2017-04-11] MEDS ORDERED: MeTOProlol XL 50 mg ER24 Tablet PO SCH (08:30)
[2017-04-11 08:57] VITALS: BP 148/96; PULSE 70; RESP 18; O2SAT 98
[2017-04-11 10:18] VITALS: PULSE 66
[2017-04-11] MEDS ORDERED: METO-272 PO (11:54)
--- NOTE | 2017-04-11 11:58 | PCM.DIMED ---
Discharge Instructions Date of Service Apr 11, 2017 Dates of Hospitalization Apr 09, 2017 at 22:47 Discharge Diagnosis Discharge Diagnosis Afib with RVR Diet Discharge Diet: Low fat, Low Sodium, Heart Healthy Call your provider Call your provider for: Fever or Chills, Shortness of breath, Chest pain, Vomitting, Excessive diarrhea Patient Instructions Follow-up plan Follow up with pcp for regular INR checkup. Goal is 2-3. Follow-up with PCP in: 2 weeks (Needs a sleep study) Provider: Sid Ojeda MD Follow-up in: 2 weeks Additional Information Patient needs a sleep study. Curtis Denney MD Apr 11, 2017 11:58
--- NOTE | 2017-04-11 12:00 | NUR ---
Social Work-readiness for discharge: Data:EMR Reviewed. Pt is on day 2 of hospitalization for unstable angina per H&P. Pt is likely medically stable for discharge later today or tomorrow. order received for assistance with checking medication for co pay amount. PATO followed up with pt who states he would like to use [facility] in [place]. PATO spoke with Maryjane who confirms they are open until 6pm today. PATO faxed in RX to [phone] and is awaiting a return call for co pay amount for medication. PATO will continue to follow. Assessment:pt who is independent at baseline. Plan:Pt to discharge home when medically stable via POV. RX has been sent to [facility] to check Copay amount. PATO will continue to follow. MILADY Cid Addendum: 04/11/17 at 1329 by CARLENE SAM SS SW received a call back from [facility], pt's copay amount would be $346.98. PAOT updated pt and he cannot afford this. PATO updated who will look at alternative option. MILADY Cid
[2017-04-11] MEDS ORDERED: WARF5TAB PO (12:50)
--- NOTE | 2017-04-11 13:43 | NUR ---
Social Work-discharge: Data:EMR Reviewed. Pt is on day 2 of hospitalization for unstable angina per H&P. Pt is medically stable for discharge. Pt has been up independent in his room. Pt and updated and agreeable to plan. No discharge needs identified. All updated and agreeable to plan. Assessment:Pt who is independent at baseline. Plan:Pt to discharge home today via POV. No discharge needs identified. All updated and agreeable to plan. MILADY Cid
--- NOTE | 2017-04-11 13:58 | PCM.DC.MED ---
Discharge Summary Date of Service Apr 11, 2017 Dates of Hospitalization Date of Hospital Admission Apr 09, 2017 at 22:47 Date of Discharge: Apr 11, 2017 Providers: Admitting Physician: Rafael Ceja MD Primary Care Physician: Levi Cruz MD Attending Physician: Rafael Ceja MD Diagnosis at Time of Discharge Diagnosis at Time of Discharge Afib with RVR Procedures Cardiac Echo Impression Interpretation Summary 1. Normal LV size and function. Wall motion abormalities suggest presence of coronary artery diseases. The overall systolic function is normal. The estimated ejection fraction is 55-60%. 2. Normal biatrial size with mild lipomatous hypertrophy of the inter arial septum. 3. Age appropriate sclero-degenerative valve changes are noted. No doppler evidence of hemodynamically significant valve diseases. 4. Normal diastolic function. 5. No prior study is available for comparison. Other Diagnostics CT angio IMPRESSION: 1. No acute pulmonary emboli. 2. Small left pleural effusion. Brief History Patient is a 71 y/o male w/ a hx of HTN and CAD s/p CABG who presents with nausea, lightheadedness, and neck/jaw pain. His symptoms began yesterday with nausea, not associated with activity, which resolved eventually. Today, he states that he also became lightheaded, and then noticed some neck and jaw pain after that. He describes these symptoms and pain as similar to the pain he has had in the past when he had a heart attack. 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 His symptoms improved while he was on his way to the emergency department. His lightheadedness dissipated when he arrived at the the ED. He reports that his symptoms are not associated with exertion. He denies new chest pain, shortness of breath, palpitations, edema, fevers, chills, coughing, wheezing, syncope, vomiting, diarrhea, vision changes, or numbness/weakness. No other complaints at this time. He had a CABG on December 24, 2016, and reports mild dyspnea on exertion and mild chest pain on deep inspiration ever since then. There has been no change in these symptoms in the last few days. He has been doing cardiac rehab regularly and reports he he used the elliptical and rowing machine 3 days ago without any dyspnea or chest pain. He walks his dog 1 mild daily and denies any new symptoms with activity today or yesterday. Hospital Course Patient is a 71 y/o male w/ a hx of HTN and CAD s/p CABG who presents with nausea, lightheadedness, and neck/jaw pain. Neck and jaw pain, acute. Present on admission. - h/o CABG. ACS (unstable angina) a possibility - Continue home aspirin. - Plavix 300 mg given one time, will discontinue - Changed simvastatin to atorvastatin 80 mg - Nitroglycerin SL PRN - Continue metoprolol succinate - CT angio -ve for PE - Trend troponin x3 - Monitor on telemetry - Cardiology on board,stress test done - no perfusion defect , final recs : rate control, anticoagulation Irregular heart rate, acute. Not present on admission. - Pt reports his felt an irregular rapid heart rate when checking his vitals. Pt denies palpitations. EKG and telemetry have shown normal sinus rhythm. -Patient in and out of afib on tele - started on warfarin 5mg daily - increased metoprolol dose to 75 mg daily Hypertension, chronic. - Well controlled on home meds - Continue home HCTZ, metoprolol GERD w/hx of duodenal ulcer - Protonix 20 mg daily Depression, chronic. - Continue home venlafaxine Insomnia - Ambien PRN - Bowel regimen as needed - Antiemetic as needed Exam Vital Signs (Last) Date Time Temp Pulse Resp B/P Pulse Ox O2 Delivery O2 Flow Rate FiO2 04/11/17 10:18 66 04/11/17 08:57 36.7 18 148/96 98 Room Air Test 04/09/17 19:32 04/09/17 22:30 04/10/17 00:25 04/10/17 05:50 Magnesium Level 2.1mg/dL (1.6-2.6) Hold Pal Top Tube Received (Received) D-Dimer 1.02mg/L FEU (<0.50) Urine Color Yellow (YELLOW) Urine Appearance Clear (CLEAR,HAZY) Urine pH 6.0 (5.0-8.0) Urine Specific Melfa 1.020 (1.003-1.035) Urine Protein Negativemg/dL (NEG,TRACE) Urine Glucose (UA) Negativemg/dL (NEGATIVE) Urine Ketones Negativemg/dL (NEGATIVE) Urine Occult Blood Moderate (NEGATIVE) Urine Nitrite Negative (NEGATIVE) Urine Bilirubin Negative (NEGATIVE) Urine Urobilinogen Normalmg/dL (NORMAL) Urine Leukocyte Esterase Negative (NEGATIVE) Urine RBC 11-50/hpf (0-2) Urine WBC 0-5/hpf (0-5) Urine Epithelial Cells Occasional/hpf (NONE-MOD) Urine Crystals None seen (NONE SEEN) Urine Bacteria None/hpf (NONE-FEW) Urine Hyaline Casts None/lpf (NONE) Urine Granular Casts None seen (NONE SEEN) Urine Waxy Casts None seen (NONE SEEN) Urine Red Blood Cell Casts None seen (NONE SEEN) Urine White Blood Cell Casts None seen (NONE SEEN) Urine Mucus None seen (None Seen) Urine Trichomonas None seen (NONE SEEN) Urine Yeast None (NONE SEEN) Urinalysis Comment None Urine Culture Reflexed Not indicated Hold Urine Received (Received) White Blood Count 5.5th/mm3 (3.8-10.1) Red Blood Count 5.08mil/mm3 (4.40-5.80) Hemoglobin 14.1g/dL (13.8-17.2) Hematocrit 42.7% (41.0-50.0) Mean Corpuscular Volume 84.1fL (81-100) Mean Corpuscular Hemoglobin 27.8pg (27.0-35.0) Mean Corpuscular Hemoglobin Concent 33.0% (32.0-37.0) Red Cell Distribution Width 14.0% (12.3-15.4) Platelet Count 168bil/L (150-400) Neutrophils (%) (Auto) 55.5% (40-74) Lymphocytes (%) (Auto) 27.5% (14-46) Monocytes (%) (Auto) 10.6% (4-12) Eosinophils (%) (Auto) 5.3% (0-5) Basophils (%) (Auto) 0.9% (0-3) Sodium Level 138mEq/L (134-144) Potassium Level 4.8mEq/L (3.5-5.2) Chloride Level 102mEq/L (97-108) Carbon Dioxide Level 23mmol/L (18-29) Blood Urea Nitrogen 16mg/dL (8-27) Creatinine 0.73mg/dL (0.76-1.27) Estimat Glomerular Filtration Rate 113mL/min (>59) Glucose Level 109mg/dL (60-99) Calcium Level 9.3mg/dL (8.5-10.1) Total Bilirubin 0.4mg/dL (0.0-1.2) Aspartate Amino Transf (AST/SGOT) 27U/L (0-50) Alanine Aminotransferase (ALT/SGPT) 23U/L (0-44) Alkaline Phosphatase 86U/L (25-160) Total Protein 6.8g/dL (6.4-8.4) Albumin 4.0g/dL (3.4-5.0) Test 04/10/17 08:45 Troponin T 0.010ug/L (0.0-0.011) Discharge Medications Discharge Medications Aspirin (Aspirin) 81 Mg Tablet 81 MG PO DAILY (Reported) Fluticasone Propionate (Flonase Allergy Relief) 50 Mcg/Actuation Lucan.susp 9.9 ML NS DAILYWD (Reported) Hydrochlorothiazide (Hydrochlorothiazide) 12.5 Mg Capsule 12.5 MG PO DAILY ( Reported) Metoprolol Succinate ER (Metoprolol Succinate ER) 50 Mg Tab.er.24h 75 MG PO DAILY Prescribed by: RAFAEL CEJA MD Multivitamin (Once Daily) 1 Each Tablet 1 EACH PO DAILY (Reported) Omeprazole (Omeprazole) 20 Mg Capsule.dr 20 MG PO DAILY (Reported) Simvastatin (Simvastatin) 20 Mg Tablet 20 MG PO HS (Reported) Venlafaxine ER (Venlafaxine ER) 225 Mg Tab.er.24 225 MG PO DAILY (Reported) Vit B Comp/C/FA/Iron/Vit E (Vitamin B Complex Tablet) 1 Each Tablet 1 EACH PO DAILY (Reported) Warfarin Sodium (Coumadin) 5 Mg Tablet 5 MG PO DAILY Prescribed by: RAFAEL CEJA MD As needed Ibuprofen (Ibuprofen) 400 Mg Tablet 400 MG PO DAILY PRN PRN For Pain (Reported) hydrOXYzine Hcl (HydrOXYzine Hcl) 25 Mg Tablet 25 MG PO TID PRN PRN For Itching Prescribed by: KRYSTIN CHUN MD Disch Med Contraindications Anticoagulation Meds: Warfarin theapy initiated (Goal 2-3 (paroxysmal afib) ) Followup Plan Disposition: Home Follow-up plan Follow up with pcp for regular INR checkup. Goal is 2-3. Discharge Diet: Low fat, Low Sodium, Heart Healthy Follow-up with PCP in: 2 weeks (Needs a sleep study) Provider: Sid Ojeda MD Follow-up in: 2 weeks Rafael Ceja MD Apr 11, 2017 13:58
--- NOTE | 2017-04-11 15:10 | NUR ---
Discharge Reviewed discharge paperwork, medications and care notes with pt and - disclaimer signed. Printed packet out on warfarin for diet and medication information, no more warfarin packets available. IV DCd intact, tele removed, all belongings with pt. Pt denies pain and SOB, strong and steady on feet. Pt declines escort out of unit and prefers to walk out with , time leaving at 1500.
--- NOTE | 2017-04-12 16:23 | DRSVH ---
PROCEDURE: EITHER REST OR STRESS ONLY Exercise myocardial perfusion SPECT with gated imaging and ejection fraction RADIOPHARMACEUTICAL: 30.4 mCi Tc-99m tetrafosmin IV at peak exercise. INDICATIONS: Angina, Coronary Artery Disease status post CABG TECHNIQUE: Radiopharmaceutical was injected at peak stress test. SPECT images were obtained, with p erfusion images in short axis, horizontal long axis, and vertical long axis views. Gated images were reviewed using [employer] software. COMPARISON: None. CARDIAC STRESS: A standard Marcial treadmill exercise tolerance test was performed by the patient under the supervision of an attending staff. The patient exercised for 6 minutes and 30 seconds; functional aerobic impai rment (GINNY) is -3% %. Hemodynamic data: There is normal blood pressure and heart response to exercise. Patient achieved 8 5% of maximum predicted heart rate. Symptoms: Patient denied anginal chest pain during exercise. EKG: No diagnostic changes of ischemia; no ectopy. Rare isolated PVC and ventricular couplets durin g and after the stress test. FINDINGS: Raw data: There is good labeling of myocardium by radiotracer. No significant motion artifacts. Danita ng-to-heart ratio is normal (normal is less than 0.38 for tetrafosmin tracer). Left ventricular function: Gated images demonstrate normal left ventricle wall thickening. No segme ntal wall motion abnormalities. Left ventricle end diastolic volume is 73 mL. Left ventricle stress ejection fraction is 60% ; normal values are above 45%. Myocardial perfusion: There is normal distribution of activity in the left and right ventricular ashwin cardium, without focal perfusion defects. IMPRESSION: Normal perfusion with no evidence of infarction. Normal post stress ejection fraction. R esting images are not required based upon the results of this study. Dictated by: Sid Ojeda M.D. on 04/12/2017 at 16:13 Approved by: Sid Ojeda M.D. on 04/12/2017 at 16:21
== END 2017-04-11 15:13 | disposition home or self-care (01) | DRG 310 ==
LOC: SED 18:50 → MPC 22:47 → OBSVTOIN 22:47
PROVIDERS: ADMIT Internal Medicine; ATTEND Internal Medicine
DX: I48.0 Paroxysmal atrial fibrillation (principal); Z79.82 Long term (current) use of aspirin; Z95.1 Presence of aortocoronary bypass graft; Z87.891 Personal history of nicotine dependence; I10 Essential (primary) hypertension; K21.9 Gastro-esophageal reflux disease without esophagitis; F32.9 Major depressive disorder, single episode, unspecified; G47.00 Insomnia, unspecified; E78.5 Hyperlipidemia, unspecified